=== PATIENT | male | born 1995 | race Caucasian/White ===

== ENCOUNTER → 2018-11-17 | Outpatient (CLI) | payer OTHER ==
--- NOTE | 2018-11-17 07:41 | US ---
EXAMINATION TYPE: US groin bilateral DATE OF EXAM: 11/17/2018 COMPARISON: NONE CLINICAL HISTORY: R59.0 Localized enlarged lymph nodes. Palpables noted bilateral groin x 2 months pe r patient. Multiple right groin lymph nodes are seen: largest imaged inferiorly = 1.8 x 1.1 x 0.6cm with cortica l thickness of 1.8mm. Multiple left groin lymph nodes are seen with largest noted superiorly = 1.8 x 0.9 x 0.4cm with corti destiny thickness of 1.3mm. IMPRESSION: 1. Lymphadenopathy
== END | disposition home or self-care (01) ==
LOC: RADUSWWP 06:58
PROVIDERS: ATTEND Nurse Practitioner
DX: R59.0 Localized enlarged lymph nodes (principal)